=== PATIENT | female | born 1955 | race Caucasian/White ===

== ENCOUNTER 2019-03-09 06:47 | Day surgery (SDC) | payer OTHER ==
[~2019-03-09] VITALS: Ht 162.6 cm; Wt 83.9 kg
[2019-03-09] MEDS ORDERED: CEFAZOLIN SOD 2 GM in D5W 50 ML IV ONE (07:00)
[2019-03-09] MEDS ORDERED: fentaNYL CITRATE 250 MCG/5 ML AMP IV ONE (09:15)
[2019-03-09] MEDS ORDERED: SEVOFLURANE 15 MIN GAS INH ONE (09:15)
[2019-03-09] MEDS ORDERED: ROPIVACAINE HCL/PF 0.2% EPIDURAL 200 ML PLAST..BAG EP ONE (09:15)
[2019-03-09] MEDS ORDERED: ROCURONIUM BROMIDE 10 MG/ML (ZEMURON) IV ONE (09:15)
[2019-03-09] MEDS ORDERED: MIDAZOLAM HCL 5 MG/5 ML VIAL IVP ONE (09:15)
[2019-03-09] MEDS ORDERED: BUPIVACAINE /PF 0.25% 30 ML VIAL INJ ONE (09:15)
[2019-03-09] MEDS ORDERED: WATER FOR IRRIGATION,STERILE 1,000 ML IRRIG.SOLN IR ONE (09:15)
[2019-03-09] MEDS ORDERED: LR 1,000 ML IV.SOLN IV ONE (09:15)
[2019-03-09] MEDS ORDERED: TRIAMCINOLONE ACETONIDE 40 MG/ML IM ONE (09:15)
[2019-03-09] MEDS ORDERED: NS IRRIG SOLN 1000 ML IR ONE (09:15)
[2019-03-09] MEDS ORDERED: FUROSEMIDE 20 MG/2 ML VIAL IVP ONE (09:15)
[2019-03-09] MEDS ORDERED: ONDANSETRON HCL 4 MG/2 ML VIAL IVP ONE (09:15)
[2019-03-09] MEDS ORDERED: LR 1,000 ML IV SCH (09:56)
[2019-03-09] MEDS ORDERED: HYDROmorphone 2 MG/ML VIAL IVP PRN (10:00)
[2019-03-09] MEDS ORDERED: HYDROmorphone 1 MG INJ. 1 MG/ML AMPUL IVP PRN ×2 (10:00)
[2019-03-09] MEDS ORDERED: METOCLOPRAMIDE HCL 10 MG/2 ML VIAL IVP PRN (10:00)
[2019-03-09] MEDS ORDERED: OXYCODONE/ACETAMINOPHEN 5-325 TABLET PO PRN ×2 (11:15)
[2019-03-09] MEDS ORDERED: ONDANSETRON HCL 4 MG/2 ML VIAL IVP PRN (11:15)
[2019-03-09] MEDS ORDERED: HYDROcodone/ACETAMIN 5-325 MG TAB (NORCO/ VICODIN) PO PRN (11:15)
[2019-03-09 12:25] VITALS: BP_SYST 129
[2019-03-09] MEDS ORDERED: SIMETHICONE 80 MG TAB.CHEW PO SCH (13:00)
[2019-03-09] MEDS ORDERED: HYDROcodone/ACETAMIN 5-325 MG TAB (NORCO/ VICODIN) ONE (13:52)
== END 2019-03-09 14:30 | disposition home or self-care (01) ==
LOC: SDS 06:47 → SMU 06:48 → SDS 14:30
PROVIDERS: ATTEND Specialist
DX: D25.1 Intramural leiomyoma of uterus (principal); N95.0 Postmenopausal bleeding; N84.0 Polyp of corpus uteri; N93.8 Other specified abnormal uterine and vaginal bleeding; I10 Essential (primary) hypertension; K66.0 Peritoneal adhesions (postprocedural) (postinfection); E66.3 Overweight; Z68.31 Body mass index [BMI] 31.0-31.9, adult
CPT/HCPCS: 52000; 58550; 71045; 88307; 93005; C1727; J0690; J1940; J2250; J2405; J3010; J3301; J3490; J7060; J7120; S2900; E0190